=== PATIENT | female | born 1940 | race Caucasian/White ===

== ENCOUNTER → 2016-02-11 | Outpatient (CLI) | payer MEDICARE ==
[~2016-02-11] MED LIST: ATENOLOL50 MG PO; B-121000 MCG PO; CIPRO 500MG TA500 MG PO; CLARITIN LIQUI-10 MG PO; FLEXERIL10 MG PO; GABAPENTIN100 M1 PO; GLIPIZIDE 5MG TA5 MG PO; GLIPIZIDE PO; HYDROCODONE-APA1 TA1 PO; LEVAQUIN500 MG PO; LEVOTHYROXINE0.1 MG PO; LISINOPRIL2.5 MG PO; LOVASTATIN40 MG PO; MELOXICAM15 MG PO; METFO PO; METFORMIN ER500 M1 PO; OMEPRAZOLE40 MG PO; OXYGEN IH; OXYGEN2 IH; PREDNISONE 20MG20 MG PO; PROMETHAZINE D120 ML PO; PYRIDIUM200 M2 PO; ULTRACET 325 MG1 TAB PO; VENTOLIN H0.09 MG/AC IH; ZITHROMAX Z-PA250 M2 PO
--- NOTE | 2016-02-11 15:46 | RADIOLOGY REPORT PS360 ---
CHEST(2 VIEWS-NOT PORTABLE) HISTORY: BRONCHITIS COMPARISON: 12/11/2013 FINDINGS: The cardiomediastinal silhouette and pulmonary vascularity are within normal limits. COPD. Chronic changes are present in the left lower lobe. Patchy areas of decreased density are present in the right upper lobe suggesting an area of pneumonia. The remaining lungs are clear. There are degenerative changes in the thoracic spine. Left shoulder prosthesis present.. IMPRESSION: Chronic changes of COPD with patchy infiltrate in right upper lobe
== END ==
LOC: RAD 12:19
DX: J40 Bronchitis, not specified as acute or chronic (principal)

== ENCOUNTER → 2016-06-21 | Outpatient (CLI) | payer MEDICARE ==
--- NOTE | 2016-06-21 14:59 | RADIOLOGY REPORT PS360 ---
BONE DENSITOMETRY(HIP:LT SPINE HISTORY: POST MENOPAUSAL ORDERING PHYSICIAN: Emperatriz Montano MD PATIENT AGE: 76 years COMPARISON: None FINDINGS: The BMD measured at the left femoral neck is 0.706 g/cm squared with a T score of -2.4. This is considered Osteopenic according to the World Health Organization criteria. Fracture risk is Moderate. Treatment is advised. IMPRESSION: Osteopenia. Moderate fracture risk. Treatment recommended. Recommend follow-up exam june 2018
--- NOTE | 2016-06-23 17:24 | RADIOLOGY REPORT PS360 ---
DIG MAMM-SCREEN LACI W/CAD CAD Screening ORDERING PHYSICIAN : Emperatriz Montano MD PATIENT AGE: 76 years GENDER: Female COMPARISON: No previous studies for comparison. Prior studies been purged , as per administration guidelines & protocol INDICATION: Routine screening 76-year-old. No hormones no new complaints noncontributory family history TECHNIQUE: Standard CC and MLO images were obtained. R2 CAD reviewed. FINDINGS: Lower-density breast with with minimal fibroglandular elements bilaterally. No significant new findings. There are scattered benign-appearing calcifications bilaterally. & Vascular calcifications also noted. A few scattered tiny densities with central lucency towards axillary right and left breast are most compatible with small intramammary lymph nodes and not of significant concern. Follow-up in one year adequate. . No suspicious findings. No new areas of significant concern. Bilateral follow-up in one year adequate. . IMPRESSION: No areas of significant concern. . Small densities axial right left breast most compatible with tiny intramammary lymph nodes. Follow-up in one year recommended. Prior studies have been purged. None available. BI-RADS CATEGORY: 2_Benign RECOMMENDED FOLLOWUP: 12M 12 MONTH FOLLOW-UP (A letter has been sent to the patient regarding results of the study.)
== END ==
LOC: RAD 10:00
DX: Z12.31 Encounter for screening mammogram for malignant neoplasm of breast (principal); Z78.0 Asymptomatic menopausal state
CPT/HCPCS: G0202

== ENCOUNTER → 2016-12-19 | Outpatient (CLI) | payer MEDICARE ==
--- NOTE | 2016-12-19 10:56 | RADIOLOGY REPORT PS360 ---
EXAM: LUMBAR SPINE 5 VIEWS HISTORY: Low back pain with bilateral leg pain LACI LEG PAIN ORDERING PHYSICIAN: Emperatriz Montano MD PATIENT AGE: 76 years COMPARISON: None FINDINGS: There is normal alignment. Multilevel degenerative disc disease is present involving the lower thoracic spine and lumbar spine as well as lumbosacral junction. Severe degenerative disc disease is present at L3-L4 and L4-L5. There is mild anterolisthesis of L5 on S1 of 3 mm. There is generalized osteopenia. Facet arthritic changes are present from L3 to S1. There is minimal lumbar curvature convex right. Prominent endplate osteophytes are present in the lower thoracic spine. No lytic or blastic change. There are incidental vascular calcifications. IMPRESSION: Severe lumbar spondylosis with multilevel degenerative disc disease and facet arthritic change
== END ==
LOC: RAD 09:27
DX: M79.604 Pain in right leg (principal); M79.605 Pain in left leg